=== PATIENT | female | born 1940 | race Hispanic/Latino ===

== ENCOUNTER 2018-06-25 10:21 | Emergency (ER) | payer MEDICARE, OTHER ==
[2018-06-25 10:39] VITALS: BMI 20.9
[2018-06-25 10:43] VITALS: RESP 18; O2SAT 98
--- NOTE | 2018-06-25 11:13 | ED PDOC ---
Arrival/HPI - General Chief Complaint: Cough, Cold, Congestion Time Seen by Provider: 06/25/18 10:44 Historian: Patient - History of Present Illness Narrative History of Present Illness (Text): 06/25/18 11:18 A 78 year old female, with no significant past medical history, presents to the emergency department complaining of cough and cold symptoms for 2.5 weeks, becoming gradually worse. Patient reports cough has been persistent, however is unable to cough up any mucous. She mentions 1 week ago experiencing shortness of breath, however this eventually subsided. Denies being given flu shot. Patient denies any fever, or any other complaints at this time. Denies any recent travel. PMD: Dr. Danielito Cordova Past Medical History - Provider Review Nursing Documentation Reviewed: Yes - Reproductive Menopause: Yes - Psychiatric Hx Substance Use: No Family/Social History - Physician Review Nursing Documentation Reviewed: Yes Family/Social History: No Known Family HX Smoking Status: Never Smoked Hx Alcohol Use: Yes Frequency of alcohol use: Socially Hx Substance Use: No Allergies/Home Meds Allergies/Adverse Reactions: Allergies No Known Allergies Allergy (Verified 06/25/18 10:39) Review of Systems - Physician Review All systems were reviewed & negative as marked: Yes - Review of Systems Constitutional: absent: Fevers Respiratory: Cough Physical Exam Vital Signs Reviewed: Yes Vital Signs Temp Pulse Resp BP Pulse Ox 06/25/18 10:39 97.8 F 78 18 145/82 98 Temperature: Afebrile Blood Pressure: Normal Pulse: Regular Respiratory Rate: Normal Appearance: Positive for: Well-Appearing, Non-Toxic, Comfortable Pain Distress: None Mental Status: Positive for: Alert and Oriented X 3 - Systems Exam Head: Present: Atraumatic, Normocephalic Pupils: Present: PERRL Extroacular Muscles: Present: EOMI Conjunctiva: Present: Normal Mouth: Present: Moist Mucous Membranes Neck: Present: Normal Range of Motion Respiratory/Chest: Present: Clear to Auscultation, Good Air Exchange. No: Respiratory Distress, Accessory Muscle Use Cardiovascular: Present: Regular Rate and Rhythm, Normal S1, S2. No: Murmurs Abdomen: No: Tenderness, Distention, Peritoneal Signs Back: Present: Normal Inspection Upper Extremity: Present: Normal Inspection. No: Cyanosis, Edema Lower Extremity: Present: Normal Inspection. No: Edema Neurological: Present: GCS=15, CN II-XII Intact, Speech Normal Skin: Present: Warm, Dry, Normal Color. No: Rashes Psychiatric: Present: Alert, Oriented x 3, Normal Insight, Normal Concentration Medical Decision Making ED Course and Treatment: 06/25/18 11:19 Impression: 78 year old female with cough and cold symptoms. Differential Diagnoses Includes But Is Not Limited To: --Bronchitis --Influenza --PNA Plan: -- Chest X-ray -- Labs -- Venous Blood Gas -- Urinalysis -- Influenza A/B Test -- Robitussin -- Reassess and disposition Progress Notes: 06/25/18 14:11 Labs reviewed with no acute leukocytosis with negative influenza. CXR shows no infiltrates. Patient reassessed and feels much better. She states she will follow up with Dr. Arroyo(PCP) at the end of the week. Spoke to Dr. Arroyo who confirms for appointment. Scripts provided. Return protocol given. She is stable for discharge. - Lab Interpretations Lab Results: 06/25/18 11:15 06/25/18 11:15 Lab Results 06/25/18 11:15: Influenza Typ A,B (EIA) Negative for flu a/b 06/25/18 11:15: Sodium 138, Chloride 103, Potassium 4.5, Carbon Dioxide 29, Anion Gap 11, BUN 14, Creatinine 0.6 L, Est GFR ( Amer) > 60, Est GFR (Non-Af Amer) > 60, Random Glucose 89, Calcium 9.4, Magnesium 2.1, Total Bilirubin 0.7, AST 32, ALT 35, Alkaline Phosphatase 82, NT-Pro-B Natriuret Pep 371, Total Protein 7.1, Albumin 4.2, Globulin 2.9, Albumin/Globulin Ratio 1.5 06/25/18 11:15: pO2 48, VBG pH 7.35, VBG pCO2 54.0, VBG HCO3 29.8 H, VBG Total CO2 31.5 H, VBG O2 Sat (Calc) 87.3 H, VBG Base Excess 2.9 H, VBG Potassium 4.2, Sodium 137.0, Chloride 103.0, Glucose 88, Lactate 1.2, FiO2 21.0, Venous Blood Potassium 4.2 06/25/18 11:15: WBC 5.1, RBC 4.47, Hgb 13.3, Hct 40.7, MCV 91.1, MCH 29.8, MCHC 32.7, RDW 13.6, Plt Count 153, MPV 8.8, Gran % 70.1 H, Lymph % (Auto) 18.4 L, [place] % (Auto) 8.7 H, Eos % (Auto) 2.4, Baso % (Auto) 0.4, Gran # 3.55, Lymph # (Auto) 0.9 L, [place] # (Auto) 0.4, Eos # (Auto) 0.1, Baso # (Auto) 0.02 I have reviewed the lab results: Yes - RAD Interpretation Narrative RAD Interpretations (Text): 06/22/2018 11:45 Chest X-ray IMPRESSION: No active pulmonary disease. COPD. Dictator: Nicky Moyer MD - Scribe Statement The provider has reviewed the documentation as recorded by the Scribjose Funk Provider Scribe Attestation: All medical record entries made by the Scribe were at my direction and personally dictated by me. I have reviewed the chart and agree that the record accurately reflects my personal performance of the history, physical exam, medical decision making, and the department course for this patient. I have also personally directed, reviewed, and agree with the discharge instructions and disposition. Disposition/Present on Arrival - Present on Arrival Any Indicators Present on Arrival: No History of DVT/PE: No History of Uncontrolled Diabetes: No Urinary Catheter: No History of Decub. Ulcer: No History Surgical Site Infection Following: None - Disposition Have Diagnosis and Disposition been Completed?: Yes Diagnosis: Bronchitis Disposition Time: 13:48 Patient Plan: Discharge Patient Problems: Current Active Problems Problem Status Onset Bronchitis Acute Condition: IMPROVED Discharge Instructions (ExitCare): Chronic Bronchitis (DC) Print Language: TURKISH Additional Instructions: All medical record entries made by the Scribe were at my direction and personally dictated by me. I have reviewed the chart and agree that the record accurately reflects my personal performance of the history, physical exam, medical decision making, and the department course for this patient. I have also personally directed, reviewed, and agree with the discharge instructions and disposition. Please follow up with the PCP on 3-5 days Prescriptions: Albuterol Sulfate [Ventolin Hfa] 1 puff IH Q6H #200 ml Azithromycin [Z-Job] 250 mg PO DAILY #6 tab Methylprednisolone [Medrol Dose Pack (21 tabs)] 4 mg PO DAILY #21 mg Referrals: Danielito Mo MD [Staff Provider] - Follow up with primary Forms: [employer] (Japanese)
[2018-06-25] MEDS ORDERED: guaiFENesin 200 mg/10 ml Syrup UD PO STA (11:24)
--- NOTE | 2018-06-25 11:48 | RAD ---
Date of service: 06/25/2018 HISTORY: cough for 2 weeks COMPARISON: No prior. FINDINGS: LUNGS: The lungs are hyperinflated and there is peribronchial thickening with chronic changes in both lungs. No focal consolidation. There is biapical pleural thickening PLEURA: No pleural effusions or pneumothorax. CARDIOVASCULAR: The heart is normal in size. There are aortic atherosclerotic calcifications present. OSSEOUS STRUCTURES: Within normal limits for the patient's age. VISUALIZED UPPER ABDOMEN: Normal. OTHER FINDINGS: None. IMPRESSION: No active pulmonary disease. COPD.
[2018-06-25] MEDS ORDERED: Albuterol-Ipratrop 3 mg / 0.5 (3 ml) UD IH STA (11:55)
[2018-06-25 12:18] LABS: VENOUS BLOOD GAS BASE EXCESS 2.9 mmol/L (0.0-2.0); VENOUS BLOOD GAS PO2 48 mm/Hg (30-55); VENOUS BLOOD PH 7.35 (7.32-7.43)
[2018-06-25 12:20] LABS: BASO # 0.02 K/mm3 (0.0-2.0); BASO % 0.4 % (0.0-3.0); EOS # 0.1 (0.0-0.7); EOS % 2.4 % (1.5-5.0); GRAN # 3.55 (1.4-6.5); GRAN % 70.1 % (50.0-68.0); HEMOGLOBIN 13.3 g/dL (12.0-16.0); LYMPH # 0.9 (1.2-3.4); LYMPH % 18.4 % (22.0-35.0); MEAN CELL VOLUME 91.1 fl (80.0-105.0); MEAN CORPUSCULAR HEMOGLOBIN 29.8 pg (25.0-35.0); MEAN CORPUSCULAR HGB CONC 32.7 g/dl (31.0-37.0); MEAN PLATELET VOLUME 8.8 fl (7.0-11.0); MONO # 0.4 (0.1-0.6); MONO % 8.7 % (1.0-6.0); RBC 4.47 10^6/uL (3.5-6.1); RED CELL DISTRIBUTION WIDTH 13.6 % (11.5-14.5); WHITE BLOOD COUNT 5.1 10^3/uL (4.5-11.0)
[2018-06-25 12:27] LABS: ALB/GLOB RATIO 1.5 (1.1-1.8); ALBUMIN 4.2 g/dL (3.0-4.8); ALT/SGPT 35 U/L (7-56); AST/SGOT 32 U/L (14-36); BLOOD UREA NITROGEN 14 mg/dL (7-21); CALCIUM 9.4 mg/dL (8.4-10.5); GFR NON-AFRICAN AMERICAN > 60
[2018-06-25 12:36] LABS: B-TYPE NATRIURETIC PEPTIDE 371 pg/mL (0-450)
[2018-06-25] MEDS ORDERED: Albuterol 0.083% Inhal Sol (2.5 mg/3 mL) UD INH STA (13:48)
[2018-06-25 14:21] VITALS: BP 141/79; PULSE 82; TEMP 97.9
== END 2018-06-25 14:45 | disposition home or self-care (01) ==
LOC: ED 10:21
DX: J20.9 Acute bronchitis, unspecified (principal)
CPT/HCPCS: 71045; 80053; 82803; 83735; 83880; 85025; 87804; 96374; 99283; J2930